=== PATIENT | female | born 1980 | race Caucasian/White ===

== ENCOUNTER 2019-03-25 19:35 | Emergency (ER) | payer OTHER ==
[~2019-03-25] VITALS: Ht 160 cm; Wt 71.0 kg
[2019-03-25] MEDS ORDERED: KETOROLAC 30MG/ML VIAL IV STA (20:07)
[2019-03-25] MEDS ORDERED: SODIUM CHLORIDE 0.9% 1,000 ML IV ONE (20:07)
[2019-03-25] MEDS ORDERED: ONDANSETRON HCL 4MG/2ML INJ IV STA (20:07)
[2019-03-25] MEDS ORDERED: MORPHINE SULFATE 4 MG/ML CPJ (NOT FOR IM USE) IV STA (20:07)
[2019-03-25] MEDS ORDERED: TETANUS, DIPHTHERIA, PERTUSSIS VAC/PF 0.5ML (>7YR OLD) IM ONE (20:15)
[2019-03-25] MEDS ORDERED: BACITRACIN ZINC OINT UDPKT TOP ONE (20:15)
[2019-03-25 20:43] LABS: HCG SCREEN NEGATIVE
[2019-03-25] MEDS ORDERED: HYDROCODONE/ACETAMINOPHEN 5/325MG TABLET PO ONE (22:45)
[2019-03-25 23:15] VITALS: BP 116/75
== END 2019-03-25 23:19 | disposition home or self-care (01) ==
LOC: ER 19:35
DX: S02.2XXA Fracture of nasal bones, initial encounter for closed fracture (principal); S00.83XA Contusion of other part of head, initial encounter; R03.0 Elevated blood-pressure reading, without diagnosis of hypertension; V49.49XA Driver injured in collision with other motor vehicles in traffic accident, initial encounter; Y93.89 Activity, other specified; Y92.410 Unspecified street and highway as the place of occurrence of the external cause
CPT/HCPCS: 70450; 70486; 81025; 84703; 90471; 90715; 96361; 96374; 96375; 99284; J1885; J2270; J2405; J7030